=== PATIENT | female | born 1995 | race Caucasian/White ===

== ENCOUNTER 2018-08-12 05:04 | Inpatient (IN) | payer MEDICAID ==
[2018-08-12] VITALS (19 sets, daily range): BP systolic 94–152; BP diastolic 62–91; PULSE 60–93; TEMP 97.4–98.5
[~2018-08-12] VITALS: Ht 160 cm; Wt 62.3 kg
[2018-08-12] MEDS ORDERED: SYNTHROID 0.0.025 MG PO (05:42)
[2018-08-12] MEDS ORDERED: PRENATAL MVI (05:42)
[2018-08-12 06:26] LABS: BASO % 0.3 % (0.0-2.0); EOS # 0.1 (0.0-0.7); EOS % 0.6 % (0-4.0); GRAN # 8.3 (1.4-6.5); GRAN % 75.3 % (42.2-75.2); HEMOGLOBIN 13.3 g/dl (12.5-16.0); LYMPH # 1.7 (1.2-3.4); LYMPH % 15.7 % (20.0-51.0); MEAN CELL VOLUME 91 fl (80.0-100.0); MEAN CORPUSCULAR HEMOGLOBIN 31 pg (27.0-31.0); MEAN CORPUSCULAR HGB CONC 34 g/dl (33.0-37.0); MEAN PLATELET VOLUME 10.9 fl (7.4-10.4); MONO # 0.8 (0.1-0.6); MONO % 7.1 % (1.7-9.3); PLATELET COUNT 283 K/mm3 (130-400); RED BLOOD COUNT 4.31 M/mm3 (4.10-5.30)
[2018-08-13 09:21] VITALS: BP 104/60; PULSE 85; TEMP 97.7
[2018-08-13] MEDS ORDERED: IBU800 M1 PO (12:05)
[2018-08-13] MEDS ORDERED: PERCOCET 325 MG1 TA2 PO (12:05)
[2018-08-13 17:15] VITALS: BP 116/72; PULSE 83; TEMP 97.7
[2018-08-13 22:10] VITALS: BP 105/66; PULSE 74; TEMP 97.8
[2018-08-14 08:18] VITALS: BP 94/57; PULSE 77; TEMP 97.8
[2018-08-14 17:25] VITALS: BP 103/75; PULSE 76; TEMP 97.6
[2018-08-14 21:00] VITALS: BP 103/62; PULSE 81; TEMP 98.2
[2018-08-15 08:06] VITALS: BP 106/67; PULSE 77
== END 2018-08-15 09:10 | disposition home or self-care (01) | DRG 788 ==
LOC: LDRO 05:04 → LDR 05:05 → OB 05:05
PROVIDERS: Student in an Organized Health Care Education/Training Program
PROC: 10D00Z1 Extraction of Products of Conception, Low, Open Approach (ICD-10-PCS; principal; 2018-08-12)
DX: O32.1XX0 Maternal care for breech presentation, not applicable or unspecified (principal); Z3A.38 38 weeks gestation of pregnancy; Z37.0 Single live birth; O36.5930 Maternal care for other known or suspected poor fetal growth, third trimester, not applicable or unspecified; O99.284 Endocrine, nutritional and metabolic diseases complicating childbirth; E03.9 Hypothyroidism, unspecified
CPT/HCPCS: J0690; J1885; J2175; J2370; J2405; J3010; J7120

== ENCOUNTER → 2019-06-04 | Outpatient (CLI) | payer SELFPAY ==
[~2019-06-04] MED LIST: IBU800 M1 PO; PERCOCET 325 MG1 TA2 PO; PRENATAL MVI; SYNTHROID 0.0.025 MG PO
== END ==
LOC: COL.RAD 07:30
DX: G43.909 Migraine, unspecified, not intractable, without status migrainosus (principal); G93.5 Compression of brain; J32.0 Chronic maxillary sinusitis
CPT/HCPCS: A9585

== ENCOUNTER 2020-07-08 13:23 | Inpatient (IN) | payer SELFPAY ==
[~2020-07-08] VITALS: Ht 160 cm; Wt 63.6 kg
[2020-07-08] VITALS (27 sets, daily range): BP systolic 92–123; BP diastolic 50–81; PULSE 66–98; TEMP 98.3–98.7
--- NOTE | 2020-07-08 14:15 | NUR ---
Patient ambulatory to LR6 with spouse, changed into gown, FHR/TOCO monitors placed and explained. Patient states she has had gushing fluid and first gush was around 1300 and it has been clear and started to feel contractions slightly. Plan of care discussed. 1420: SVE per Hillary FITCH 0-/-3 and amniotest positive and clear fluid noted. Dr. Piña updated and admit orders received. 1445: IV placed in left hand, blood obtained and to lab, LR infusing. Assessment completed/consents signed/ packet given. 1510: Pitocin discussed with patient and patient agrees and pitocin started per protocol at 2mU/hr. 1650: Patient requesting epidural and Ambrocio Villatoro CRNA currently assisting with notified. 1700: Dr. Piña at bedside and assessing patient and FHR strip. SONO done and vertex position confirmed.SVE-/-2. Patient updated on plan of care. 1745: Patient sitting up on edge of bed and Rafal NAVA at bedside for epidural. Difficulty tracing FHR due to maternal position. 1755: Test dose given and patient tolerates well. 1800: Patient left lateral and updated on plan of care and safety precautions gone over. 1815: Dr. Piña at bedside assessing patient and FHR. SVE-/-1. Report given to Tanya FITCH. 1511: Patient up on birthing ball.
[2020-07-08] MEDS ORDERED: VALTREX 50500 MG/TAB PO (14:24)
[2020-07-08 15:29] LABS: BASO % 0.2 % (0.0-2.0); EOS # 0.1 (0.0-0.7); EOS % 0.5 % (0-4.0); GRAN # 9.6 (1.4-6.5); GRAN % 79.2 % (42.2-75.2); HEMATOCRIT 38.5 % (37.0-47.0); HEMOGLOBIN 13.1 g/dl (12.5-16.0); LYMPH # 1.6 (1.2-3.4); LYMPH % 13.3 % (20.0-51.0); MEAN CELL VOLUME 90 fl (80.0-100.0); MEAN CORPUSCULAR HEMOGLOBIN 31 pg (27.0-31.0); MEAN CORPUSCULAR HGB CONC 34 g/dl (33.0-37.0); MEAN PLATELET VOLUME 11.1 fl (7.4-10.4); MONO # 0.7 (0.1-0.6); MONO % 5.9 % (1.7-9.3); PLATELET COUNT 318 K/mm3 (130-400); RED BLOOD COUNT 4.29 M/mm3 (4.10-5.30); REDCELL DISTRIBUTION WIDTH-CV 13.5 % (11.5-14.5)
--- NOTE | 2020-07-08 18:30 | NUR ---
Report recieved, care assumed. FHR continues to have recurrent late decelerations with moderate variability. Dr. Piña remains on unit reviewed FHR tracing.
--- NOTE | 2020-07-08 19:50 | NUR ---
[id number] FHR with recurrent variable decelerations. [id number] FHR with recurrent late decelerations. FHR down to 90-100 bpm with decelerations lasting for 60-90 seconds with a spontaneous return to baseline. Dr. Piña remains on the unit and reviewing FHR tracing.
--- NOTE | 2020-07-08 20:19 | NUR ---
Dr. Piña remains on unit and reviewing FHR monitor. 1950 Dr. Piña to room for SVE - complete/+2.
--- NOTE | 2020-07-08 20:19 | NUR ---
Late FHR decelerations continue. 2004 - Patient begins to push with contractions. 2011 - Dr. Piña to room. Patient pushing with contractions. After pushing attempt FHR down to 60 bpm. FHR down x5 minutes. Vacuum applied at 2016, patient pushing with contractions, vacuum assisted delivery of viable male at [address] Piña. Cord clamped and cut and infant to the care of the nursery RN. Spontaneous delivery of placenta by Dr. Piña at 2022. Pitocin infusing at 333ml/hr per orders and protocol. Fundus firm, lochia WNL. Repair of 4th degree perineal laceration by Dr. Piña.
[2020-07-09 04:30] VITALS: BP 95/54; PULSE 80; TEMP 98.6
[2020-07-09 08:30] VITALS: BP 101/62; PULSE 71; TEMP 97.8
--- NOTE | 2020-07-09 09:07 | NUR ---
Initial visit; Parents thanked Shampooer for offering congratulations and God's blessings for the of their son. Shampooer thanked family for choosing [facility].
[2020-07-09 13:45] VITALS: BP 88/47; PULSE 72; TEMP 99
[2020-07-09 17:04] VITALS: BP 101/53; PULSE 81
[2020-07-09 18:00] VITALS: BP 100/53; PULSE 87; TEMP 97.4
[2020-07-10] MEDS ORDERED: IBU800 M1 PO (08:21)
[2020-07-10 08:30] VITALS: BP 122/69; BP 98/63; PULSE 65; PULSE 85; TEMP 97.8
== END 2020-07-10 12:15 | disposition home or self-care (01) | DRG 768 ==
LOC: LDRO 13:23 → OB 14:03 → LDR 14:03 → EDSTATUS 14:35 → OB 23:32
PROVIDERS: ADMIT Student in an Organized Health Care Education/Training Program
PROC: 10D07Z6 Extraction of Products of Conception, Vacuum, Via Natural or Artificial Opening (ICD-10-PCS; principal; 2020-07-08)
PROC: 0DQP0ZZ Repair Rectum, Open Approach (ICD-10-PCS; 2020-07-08)
PROC: 3E033VJ Introduction of Other Hormone into Peripheral Vein, Percutaneous Approach (ICD-10-PCS; 2020-07-08)
PROC: 10907ZC Drainage of Amniotic Fluid, Therapeutic from Products of Conception, Via Natural or Artificial Opening (ICD-10-PCS; 2020-07-08)
DX: O34.211 Maternal care for low transverse scar from previous cesarean delivery (principal); Z37.0 Single live birth; O98.52 Other viral diseases complicating childbirth; Z3A.39 39 weeks gestation of pregnancy; B00.9 Herpesviral infection, unspecified; O76 Abnormality in fetal heart rate and rhythm complicating labor and delivery; E03.9 Hypothyroidism, unspecified; O99.284 Endocrine, nutritional and metabolic diseases complicating childbirth
CPT/HCPCS: J2590; J7120

== ENCOUNTER 2021-07-29 18:46 | Emergency (ER) | payer SELFPAY ==
[~2021-07-29] VITALS: Ht 160 cm; Wt 52.3 kg
[~2021-07-29 18:46] MED LIST changes: +VALTREX 50500 MG/TAB PO
[2021-07-29 19:52] VITALS: TEMP 98.6
[2021-07-29 20:43] LABS: BASO % 0.2 % (0.0-2.0); EOS % 0.2 % (0-4.0); GRAN # 3.6 K/mm3 (1.4-6.5); HEMOGLOBIN 14.4 g/dl (12.5-16.0); LYMPH # 0.6 K/mm3 (1.2-3.4); LYMPH % 12.3 % (20.0-51.0); MEAN CELL VOLUME 86 fl (80.0-100.0); MEAN CORPUSCULAR HEMOGLOBIN 29 pg (27.0-31.0); MEAN CORPUSCULAR HGB CONC 34 g/dl (33.0-37.0); MEAN PLATELET VOLUME 10.4 fl (7.4-10.4); MONO # 0.3 K/mm3 (0.1-0.6); MONO % 7.1 % (1.7-9.3); PLATELET COUNT 257 K/mm3 (130-400); RED BLOOD COUNT 4.89 M/mm3 (4.10-5.30); REDCELL DISTRIBUTION WIDTH-CV 12.6 % (11.5-14.5)
[2021-07-29 20:53] LABS: ALANINE AMINOTRANSFERASE 10 U/L (0-55); ALBUMIN 3.8 gm/dL (3.5-5.0); ALKALINE PHOSPHATASE 86 U/L (40-150); ANION GAP 10 mmol/L (7-16); AST,SGOT 14 U/L (5-34); BILIRUBIN,TOTAL 0.9 mg/dL (0.2-1.2); BLOOD UREA NITROGEN 6 mg/dL (7-19); CALCIUM 8.8 mg/dL (8.4-10.2); CARBON DIOXIDE 23 mmol/L (22-29); CHLORIDE 105 mmol/L (98-107); CREATININE, serum 0.76 mg/dL (0.57-1.11); GLUCOSE 94 mg/dL (70-99); LIPASE < 10 U/L (8-78); POTASSIUM 3.6 mmol/L (3.5-4.5); SODIUM 138 mmol/L (136-145); TOTAL PROTEIN 7.2 gm/dL (6.2-8.1)
[2021-07-29 21:35] LABS: COLLECTION METHOD CLEAN CATCH
[2021-07-29 21:41] LABS: PH 8 (5-8); URINE APPEARANCE Hazy (CLEAR/HAZY); URINE BACTERIA Rare (NONE SEEN); URINE BILIRUBIN Negative (NEGATIVE); URINE BLOOD Negative (NEGATIVE); URINE COLOR Straw (YELLOW); URINE GLUCOSE Negative (NEGATIVE); URINE KETONE Trace (NEGATIVE); URINE LEUKOCYTE ESTERASE Negative (NEGATIVE); URINE NITRATE Negative (NEGATIVE); URINE PROTEIN(semi-quant) Negative (NEGATIVE); URINE RBC 0-2 /hpf (0-2); URINE UROBILINOGEN Negative (NEGATIVE)
[2021-07-29] MEDS ORDERED: ZOFRAN ODT4 MG PO (21:41)
[2021-07-29 21:58] VITALS: BP 120/80; PULSE 80
== END 2021-07-29 21:58 | disposition home or self-care (01) ==
LOC: COL.ER 18:46
PROVIDERS: Nurse Practitioner
DX: A08.4 Viral intestinal infection, unspecified (principal); E03.9 Hypothyroidism, unspecified; Z20.822 Contact with and (suspected) exposure to COVID-19; Z79.890 Hormone replacement therapy
CPT/HCPCS: J1885; J2405; J7030

== ENCOUNTER → 2023-01-08 | Outpatient (CLI) | payer MEDICAID ==
[2023-01-07 01:30] VITALS: BP 110/69; PULSE 89; TEMP 97.8
[~2023-01-08] VITALS: Ht 160 cm; Wt 66.8 kg
[~2023-01-08] MED LIST changes: +ZOFRAN ODT4 MG PO
[2023-01-08 01:56] VITALS: TEMP 98.6
[2023-01-08 02:10] VITALS: PULSE 88
[2023-01-08 02:20] VITALS: PULSE 85
--- NOTE | 2023-01-08 02:24 | NUR ---
ABM TO L&D WITH C/O ? SROM. STATES SHE HAD A CRAMP AND FELT SOME LIQUID COOME OUT. AMNI TRACE NEG. NO FLUID FELT. SVE HIGH THICK AND CLOSED. BABY MOVEING WELL. BABY IS FOOTLING BREECH WITH A SCHEDULED REPEAT C/S ON 01/23/23. DENIES FEELING CONTRACTIONS AT THIS TIME. DR THOMASON CALLED AT 0224 WITH REPORT. MAY DISCHARGE TO HOME.
[2023-01-08 02:58] VITALS: BP 99/60; PULSE 87; TEMP 98.5
--- NOTE | 2023-01-08 03:04 | NUR ---
DISCHARGE ORDERS RECIEVED. DISCHARGE INSTRUCTIONS GIVEN TO PATIENT AND SPOUSE. STATES UNDERSTANDING OF ALL INFORMATION.
== END ==
LOC: LDRO 01:03
DX: O32.1XX0 Maternal care for breech presentation, not applicable or unspecified (principal); Z3A.37 37 weeks gestation of pregnancy